=== PATIENT | female | born 1960 | race Two or more races ===

== ENCOUNTER 2020-06-09 17:11 | Emergency (ER) | payer OTHER ==
[~2020-06-09] VITALS: Ht 152.4 cm; Wt 70.3 kg
[2020-06-09] MEDS ORDERED: METFORMIN HCL500 M3 (17:30)
[2020-06-09] MEDS ORDERED: TENORMIN25 MG (17:31)
[2020-06-09] MEDS ORDERED: GLIPIZIDE XL10 MG (17:31)
[2020-06-09] MEDS ORDERED: TOPROL XL100 M1 (17:31)
[2020-06-09] MEDS ORDERED: FLONASE16 GM IH (22:58)
[2020-06-09] MEDS ORDERED: AFRIN15 ML IH (22:58)
== END 2020-06-09 22:40 | disposition home or self-care (01) ==
LOC: ER 17:11
DX: R04.0 Epistaxis (principal); J32.0 Chronic maxillary sinusitis

== ENCOUNTER 2021-12-21 23:32 | Emergency (ER) | payer OTHER ==
[~2021-12-21] VITALS: Ht 170.2 cm; Wt 68.0 kg
[~2021-12-21 23:32] MED LIST: AFRIN15 ML IH; FLONASE16 GM IH; GLIPIZIDE XL10 MG; METFORMIN HCL500 M3; TENORMIN25 MG; TOPROL XL100 M1
[2021-12-22] MEDS ORDERED: NORFLEX100MG PO (03:44)
[2021-12-22] MEDS ORDERED: DICLOFENAC POTA50 MG PO (03:44)
== END 2021-12-22 | disposition home or self-care (01) ==
LOC: ER 23:32
DX: M54.50 Low back pain, unspecified (principal)